=== PATIENT | male | born 1945 | race African-American/Black ===

== ENCOUNTER 2017-11-12 01:02 | Emergency (ER) | payer OTHER ==
[~2017-11-12] VITALS: Ht 175.2 cm; Wt 93.0 kg
[~2017-11-12 01:02] MED LIST: LOPRESSOR50 MG PO; PRILOSEC20 M1 PO; PRINIVIL10 MG PO; ZOCOR20 MG PO
== END 2017-11-12 04:06 | disposition short-term general hospital (02) ==
LOC: ED 01:02
DX: S12.600A Unspecified displaced fracture of seventh cervical vertebra, initial encounter for closed fracture (principal); W10.8XXA Fall (on) (from) other stairs and steps, initial encounter; Y93.89 Activity, other specified; Y92.89 Other specified places as the place of occurrence of the external cause; Y99.9 Unspecified external cause status

== ENCOUNTER 2017-12-11 16:06 | Emergency (ER) | payer OTHER, MEDICARE ==
[~2017-12-11] VITALS: Ht 180.3 cm; Wt 93.0 kg
[2017-12-11 17:16] LABS: BASO % 0.5 % (0.0-1.0); EOS # 0.2 10*3/uL (0.0-0.4); EOS % 4.7 % (1.0-4.0); HEMATOCRIT 27.1 % (42.0-52.0); HEMOGLOBIN 8.6 g/dl (14.0-18.0); LYMPH # 1.7 10*3/uL (1.3-4.4); LYMPH % 41.7 % (27.0-41.0); MEAN CORPUSCULAR HGB CONC 31.7 g/dl (33.0-37.0); MEAN PLATELET VOLUME 8.7 fl (9.6-12.3); MONO # 0.5 10*3/uL (0.1-1.0); MONO % 12.1 % (3.0-9.0); NEUT # 1.7 10*3/uL (2.3-7.9); NEUT % 40.8 % (47.0-73.0); PLATELET COUNT AUTOMATED 231 10*3/uL (130-400); RED BLOOD COUNT 3.19 10*6/uL (4.50-5.90); RED CELL DISTRI WIDTH 14.3 % (0-14.5); WHITE BLOOD COUNT 4.1 10*3/uL (4.8-10.8)
[2017-12-11 17:25] LABS: ACT PARTIAL THROMBO TIME 24.6 SECONDS (20.8-31.5); INTERNATIONAL NORM RATIO 1.1 (2.0-3.5)
[2017-12-11 17:32] LABS: ALBUMIN 3.2 gm/dl (3.1-4.5); ALKALINE PHOSPHATASE 59 U/L (45-117); BUN 20 mg/dl (7-24); CHLORIDE 104 mmol/L (98-107); CREATININE 1.08 mg/dL (0.70-1.30); POTASSIUM 4.7 mmol/L (3.5-5.1); SGOT/AST 16 IU/L (3-35); SGPT/ALT 11 U/L (12-78); SODIUM 140 mmol/L (136-145); TOTAL PROTEIN 7.6 gm/dL (6.4-8.2)
== END 2017-12-11 18:25 | disposition home or self-care (01) ==
LOC: ED 16:06
PROVIDERS: Emergency Medicine
DX: R60.0 Localized edema (principal); D64.9 Anemia, unspecified; D72.819 Decreased white blood cell count, unspecified

== ENCOUNTER → 2018-08-30 | Outpatient (CLI) | payer OTHER, MEDICARE | END | disposition home or self-care (01) | LOC: CT 09:42 | DX: R91.1 Solitary pulmonary nodule (principal); L92.9 Granulomatous disorder of the skin and subcutaneous tissue, unspecified ==